=== PATIENT | male | born 1970 | race Caucasian/White ===

== ENCOUNTER 2018-09-08 00:24 | Emergency (ER) | payer OTHER ==
[~2018-09-08] VITALS: Ht 185.4 cm; Wt 88.5 kg
--- NOTE | 2018-09-08 00:44 | NUR ---
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 noted contusion and puncture wound with scant bleeding on left inner thigh. will cont monitor. cms intact, cap refill <3 sec, no s/s of deformity. pt ambulatory w/ steady gait.
[2018-09-08] MEDS ORDERED: Tetanus/Diptheria/Pertussis IM ONE (00:45)
[2018-09-08] MEDS ORDERED: Bacitracin Oint UD TOPIC ONE (00:45)
[2018-09-08] MEDS ORDERED: Augmentin 875mg Tab ORAL ONE (00:45)
--- NOTE | 2018-09-08 00:46 | NUR ---
ED Nurse Note: [facility] FILLED AND FAXED.
[2018-09-08 00:47] VITALS: BP 140/89
[2018-09-08] MEDS ORDERED: AUGMENTIN 875-1 EAC1 ORAL (00:51)
--- NOTE | 2018-09-08 00:51 | Emergency Room Report ---
History of Present Illness General Chief Complaint: Animal Bite Source: Patient Present Illness HPI This is a 48-year-old male with no past medical history. He presents with chief complaint of a dog bite. He was bit by a dog that his friend is sitting. The time clock mechanic is on vacation. That dog and his dog was fighting with each other. He try to break it up and in the process got bit on his left thigh. This occurred around 5:30 PM. Since then the bruising has gotten worse. There is no drainage. Pain is throbbing in nature. 7 out of 10. He called the advice line and the nurse told him to come to the ER. Patient denies any other symptoms. No other injury. This is a family pet. Allergies: Coded Allergies: No Known Allergies (Unverified , 09/08/18) Patient History Past Medical History: see triage record, old chart reviewed Past Surgical History: none Pertinent Family History: none Social History: Reports: smoking Immunizations: other Reviewed Nursing Documentation: PMH: Agreed; PSxH: Agreed Nursing Documentation-PMH Past Medical History: No Stated History Review of Systems Eye: Denies: eye pain, blurred vision ENT: Denies: ear pain, nose congestion, throat swelling Respiratory: Denies: cough, shortness of breath Cardiovascular: Denies: chest pain, palpitations Gastrointestinal: Denies: abdominal pain, diarrhea, nausea, vomiting Musculoskeletal: Reports: muscle pain; Denies: back pain, joint pain Skin: Denies: rash Neurological: Denies: headache, numbness Endocrine: Denies: increased thirst, increased urine Hematologic/Lymphatic: Denies: easy bruising All Other Systems: negative except mentioned in HPI Physical Exam Vital Signs Date Time Temp Pulse Resp B/P (MAP) Pulse Ox O2 Delivery O2 Flow Rate FiO2 09/08/18 00:29 97.9 60 18 147/89 (108) 98 Room Air Vitals normal Sp02 EP Interpretation: reviewed, normal General Appearance: well appearing, no apparent distress, alert Head: normocephalic, atraumatic Eyes: bilateral eye PERRL, bilateral eye EOMI ENT: hearing grossly normal, normal pharynx Neck: full range of motion, supple, no meningismus Respiratory: chest non-tender, lungs clear, normal breath sounds Cardiovascular #1: regular rate, rhythm, no murmur Gastrointestinal: normal bowel sounds, non tender, no mass, no organomegaly, no bruit, non-distended Musculoskeletal: back normal, gait/station normal, normal range of motion, other - Left leg: There is a 1.5 cm laceration to the inner aspect of the mid thigh area. There is a large area of ecchymosis of about 6 to 8 cm. No drainage. No crepitance. No foreign body.. Psychiatric: mood/affect normal Medical Decision Making Diagnostic Impression: Primary Impression: Contusion of leg, left Qualified Codes: S80.12XA - Contusion of left lower leg, initial encounter Additional Impression: Dog bite of left thigh Qualified Codes: S71.152A - Open bite, left thigh, initial encounter; W54.0XXA - Bitten by dog, initial encounter ER Course Patient presents with a dog bite to the left thigh. This has an increased risk for infection. Tetanus updated. Wound irrigated and bacitracin placed. Also gave the patient a dose of Augmentin here. I would not suture this because of the risk for infection. He has bruising but no evidence of deep infection or laceration. No evidence of necrotizing fasciitis. Will discharge home. Last Vital Signs Date Time Temp Pulse Resp B/P (MAP) Pulse Ox O2 Delivery O2 Flow Rate FiO2 09/08/18 00:29 97.9 60 18 147/89 (108) 98 Room Air Status: improved Disposition: HOME, SELF-CARE Condition: Stable Scripts Amoxicillin/Potassium Clav 875-125* (AUGMENTIN 875-125 TABLET*) 1 Each Tablet 1 TAB ORAL TWICE A DAY, #14 TAB Prov: Derek Alan MD 09/08/18 Patient Instructions: Animal Bite Additional Instructions: Keep wound clean. Clean first with hydrogen peroxide and then apply antibiotic ointment. Follow-up with your doctor in 7 days for recheck. Return if worse. Derek Alan MD Sep 08, 2018 00:51
--- NOTE | 2018-09-08 01:17 | NUR ---
ED Nurse Note: PT CLEARED TO BE D/C PER ERMD, PT DISCHARGE AND AFTERCARE INSTRUCTION PROVIDED W/ PRESCRIPTION, PT EDUCATION DONE VIA DISCUSSION AND HANDOUT, PT ADVISED TO FOLLOW UP WITH PCP OR RETURN TO ED IF CHANGES IN CONDITION, VSS, AMBULATORY W/ STEADY GAIT, ACCOMPANIED BY SPOUSE, WOUND CARE DONE AND DRESSING APPLIED.
[2018-09-08 01:18] VITALS: BP 128/76
== END 2018-09-08 01:18 | disposition home or self-care (01) ==
LOC: EMR 01:00
DX: S71.152A Open bite, left thigh, initial encounter (principal); W54.0XXA Bitten by dog, initial encounter; S80.12XA Contusion of left lower leg, initial encounter; Z23 Encounter for immunization; F17.200 Nicotine dependence, unspecified, uncomplicated
CPT/HCPCS: 90471; 90715; 99282